=== PATIENT | female | born 1995 | race Caucasian/White ===

== ENCOUNTER 2016-10-25 08:56 | Emergency (ER) | payer MEDICAID ==
[2016-10-25 08:56] VITALS: BP 110/68
[2016-10-25 09:28] LABS: Urine Bilirubin Negative (NEGATIVE); Urine Blood Negative /ul (NEGATIVE); Urine Ketone Negative (NEGATIVE); Urine Nitrite Negative (NEGATIVE); Urine Protein Negative (NEGATIVE); Urine Urobilinogen Normal (NORMAL)
--- NOTE | 2016-10-25 09:31 | ERNOTE ---
ER Female HPI Stated Complaint: PREG TEST Source: patient Exam Limitations: no limitations Immunizations: IMMUNIZATION HX Immunizations Up to Date Yes History of Influenza Vaccine No Hx Pneumococcal Vaccination No Allergies/Adverse Reactions: Allergies lamotrigine [From Lamictal] Allergy (Mild, Verified 10/25/16 09:07) Hives sulfamethoxazole [From Bactrim] Allergy (Mild, Verified 10/25/16 09:07) Hives trimethoprim [From Bactrim] Allergy (Mild, Verified 10/25/16 09:07) Hives Home Medications: HOME MEDICATIONS NK [No Home Medication] 09/15/16 [Last Taken Unknown] - History of Present Illness Narrative: Pt presents after no period for the past 7 weeks. She has not had any spotting. Pt had a positive urine preg test followed by 2 negative ones. She is here with her friend who could not wait until the clinic opened. Has breast tenderness, mood swings. No uterine or abdominal cramping Date (Duration): 10/25/16 Time (Timing): 09:10 Quality: Present: mild Radiation: Present: none Activities at Onset: Present: none Prior Abdominal Problems: Present: none Sexual [place] History: Present: single partner Associated Symptoms: Present: denies symptoms Review of Systems - Review of Systems Constitutional: Present: no symptoms reported EYE: Present: no symptoms reported ENT: Present: no symptoms reported Respiratory: Present: no symptoms reported Cardiology: Present: no symptoms reported Gastrointestinal/Abdominal: Present: no symptoms reported Genitourinary: Present: no symptoms reported Musculoskeletal: Present: no symptoms reported Skin: Present: no symptoms reported Neurological: Present: no symptoms reported Endocrine: Present: no symptoms reported Hematologic/Lymphatic: Present: no symptoms reported - Patient's Past Medical History Patient History - Medical: Anxiety, Bipolar, Depression, Other Patient History - Cardiac/Respiratory: No pertinent hx Patient History - Cancer: No Hx of Cancer Patient History - Surgical Procedures: D & C - Social History Living Situations: home Smoking Status: Former smoker Alcohol Use: none Drug Use: none Physical Exam - Physical Exam General Appearance: Present: alert, no apparent distress Eye Exam: Normal inspection: bilateral Ears, Nose, Throat: Present: normal ENT inspection Neck: Present: normal inspection Respiratory: Present: no respiratory distress Cardiovascular/Chest: Present: regular rate, rhythm Gastrointestinal/Abdominal: Present: normal bowel sounds Back Exam: Present: normal inspection Extremity Exam: Present: normal inspection Neurological Exam: Present: alert, oriented Skin Exam: Present: normal color Lymphatic Exam: Present: no adenopathy ED Progress - Results and Orders Patient's Lab Results:: I have reviewed the patient's lab results. - Vital Signs Patient's Vital Signs:: I have reviewed the patient's vital signs. Vital Signs: Vital Signs 10/25/16 09:02 Temperature 95.9 C H Pulse Rate 92 Respiratory 12 Rate Blood Pressure 110/68 O2 Sat by Pulse 100 Oximetry - Progress/Reassessment Chief Complaint: Genitourinary Problem Plan - Plan Plan: f/u with PMD/ urogynecology physician Departure Clinical Impression: Negative test - Departure Disposition: Home self-care Condition: Good Instructions: Oral Contraception Information Referrals: Fabián Dickerson DO [Staff Physician] -
[2016-10-25 09:36] LABS: Urine Appearance Clear; Urine Bacteria TRACE; Urine Color Yellow; Urine RBC 0-5 /hpf (0-5); Urine WBC 0-5 /hpf (0-5)
== END 2016-10-25 10:54 | disposition home or self-care (01) ==
LOC: ER 08:56
DX: Z03.89 Encounter for observation for other suspected diseases and conditions ruled out (principal)

== ENCOUNTER 2016-11-04 12:22 | Emergency (ER) | payer MEDICAID ==
[2016-11-04 12:41] VITALS: BP 127/86
--- NOTE | 2016-11-04 13:19 | ERNOTE ---
Medical Problem HPI - Narrative Date of Service: 11/04/16 - General Chief Complaint: Flu Symptoms Time Seen by Provider: 11/04/16 13:06 Source: patient, RN notes reviewed Exam Limitations: no limitations - Immun/Allergies/Home Medications Immunizations: IMMUNIZATION HX Immunizations Up to Date Yes History of Influenza Vaccine No Hx Pneumococcal Vaccination No Allergies/Adverse Reactions: Allergies lamotrigine [From Lamictal] Allergy (Mild, Verified 11/04/16 12:41) Hives sulfamethoxazole [From Bactrim] Allergy (Mild, Verified 11/04/16 12:41) Hives trimethoprim [From Bactrim] Allergy (Mild, Verified 11/04/16 12:41) Hives Home Medications: HOME MEDICATIONS ALPRAZolam [Xanax] 1 mg PO TID PRN 11/04/16 [Last Taken Unknown] Amox Tr/Potassium Clavulanate [Augmentin 875-125 Tablet] 875 mg PO Q12H #20 tab 11/04/16 [Last Taken Unknown] Ziprasidone HCl 40 mg PO BID 11/04/16 [Last Taken Unknown] - History of Present History Narrative: Nadya is a 21 year old female who presents to the ED for a work excuse. She has had upper respiratory symptoms for 2 weeks. The illness seemed to be improving but she felt worse again today. She called in sick to her job and was told she had to see a doctor and have a note in order to come back to work. She reports a cough, sore throat and sinus congestion/pain. Timing: getting worse Review of Systems - Review of Systems Constitutional: Present: chills, diaphoresis, fatigue, malaise EYE: Present: no symptoms reported ENT: Present: nose congestion, nasal drainage, sore throat. Absent: ear pain Respiratory: Present: cough. Absent: shortness of breath, wheezing Cardiology: Present: no symptoms reported Gastrointestinal/Abdominal: Present: no symptoms reported Genitourinary: Present: no symptoms reported Musculoskeletal: Absent: muscle pain, neck pain, joint pain Skin: Absent: rash, lesions Neurological: Present: headache, dizziness/light-headedness Endocrine: Present: no symptoms reported Hematologic/Lymphatic: Present: no symptoms reported Psych: Present: no symptoms reported - Patient's Past Medical History Patient History - Medical: Anxiety, Bipolar, Depression, Other Patient History - Cardiac/Respiratory: No pertinent hx Patient History - Cancer: No Hx of Cancer Patient History - Surgical Procedures: D & C LMP (females 10-50): 3 months - negative UPT 1 wk ago - Social History Living Situations: other Smoking Status: Former smoker Have you smoked in the past 12 months: No Do you dip or chew tobacco: No Patient requests Smoking Cessation Consult: No Initiate information on Smoking Cessation: No Alcohol Use: none Drug Use: none Physical Exam - Physical Exam General Appearance: Present: wd/wn, alert, no apparent distress, other - appears uncomfortable Eye Exam: Normal inspection: bilateral Ears, Nose, Throat: Present: hearing grossly normal, nasal congestion, sinus pain/drainage, pharyngeal erythema. Absent: abnormal TM (R), abnormal TM (L) Neck: Present: supple, lymphadenopathy (R), lymphadenopathy (L), tender lateral Respiratory: Present: no respiratory distress, normal breath sounds, no accessory muscle use, lungs clear, other - frequent harsh cough Cardiovascular/Chest: Present: regular rate, rhythm, no murmur, normal peripheral pulses Neurological Exam: Present: alert, oriented, normal mood/affect, no motor/ sensory deficits Skin Exam: Present: normal color, warm/dry ED Progress - Results and Orders Patient's Lab Results:: I have reviewed the patient's lab results. - Vital Signs Patient's Vital Signs:: I have reviewed the patient's vital signs. Vital Signs: Vital Signs 11/04/16 12:34 Temperature 36.5 C Pulse Rate 80 Respiratory 16 Rate Blood Pressure 127/86 O2 Sat by Pulse 100 Oximetry - Progress/Reassessment Chief Complaint: Flu Symptoms Progress:: Unchanged Departure - Departure Clinical Impression: Sinusitis, acute Qualifiers: Sinusitis location: unspecified location Recurrence: non-recurrent Qualified Code(s): J01.90 - Acute sinusitis, unspecified Bronchitis, acute Qualifiers: Bronchitis organism: unspecified organism Qualified Code(s): J20.9 - Acute bronchitis, unspecified Disposition: Home self-care Condition: Good Instructions: Sinusitis, Adult, [id number], Form - Excuse from Work, School, or Physical Activity Prescriptions: Amox Tr/Potassium Clavulanate [Augmentin 875-125 Tablet] 875 mg PO Q12H #20 tab
== END 2016-11-04 13:25 | disposition home or self-care (01) ==
LOC: ER 12:22
DX: J20.9 Acute bronchitis, unspecified (principal); J01.90 Acute sinusitis, unspecified; Z87.891 Personal history of nicotine dependence; F41.1 Generalized anxiety disorder

== ENCOUNTER 2017-01-28 13:05 | Emergency (ER) | payer MEDICAID ==
[2017-01-28 14:01] LABS: Hematocrit 32.5 % (37.0-47.0); Hemoglobin 10.9 gm/dL (12.5-16.0); Mean Cell Volume 89.8 fl (78-100); Mean Corpuscular Hemoglobin 30.1 pg (27-31); Mean Corpuscular Hgb Conc 33.5 g/dl (32-36); Mean Platelet Volume 9.2 fl (6.0-9.5); Neutrophil # 7.3 K/mm3 (1.3-6.0); Neutrophil % 81.5 % (42-75.0); Platelet Count 345 K/mm3 (150-450); Red Blood Count 3.62 M/mm3 (4.2-5.4)
--- OUTSIDE RECORDS SUMMARY | 2017-01-28 14:11 | XMS REPORT | Continuity of Care Document ---
:1995 Author Organization [facility] ([facility]) Address [address] [place] [address] Phone [phone] Care Team Providers Name Role Phone Alfred Palma Primary Care Provider [phone] Source Comments This disclosure is being made pursuant to the Care Everywhere program, applicable federal and state laws, and may not contain all informaitonavailable regarding this patient.[facility] ([facility]) Active Allergies and Adverse Reactions No Active Allergies Current Medications Not on file Active Problems Problem Noted Date Supervision of other normal 09/11/2008 Unspecified complication of , antepartum 08/31/2008 Scoliosis (and kyphoscoliosis), idiopathic 09/24/2006 Social History Tobacco Use Types Packs/Day Years Used Date Never Assessed Last Filed Vital Signs Vital Sign Reading Time Taken Blood Pressure 126/69 09/11/2008 1:55 PM TERMINAL MAKE UP OPERATOR Pulse 79 09/11/2008 1:55 PM TERMINAL MAKE UP OPERATOR Temperature 36 C (96.8 F) 09/03/2008 8:00 AM TERMINAL MAKE UP OPERATOR Respiratory Rate 18 09/03/2008 8:00 AM TERMINAL MAKE UP OPERATOR Height 1.365 m (4' 5.74") 09/11/2008 1:55 PM TERMINAL MAKE UP OPERATOR Weight 61.1 kg (134 lb 11.2 oz) 09/11/2008 1:55 PM TERMINAL MAKE UP OPERATOR Body Mass Index 32.79 09/11/2008 1:55 PM TERMINAL MAKE UP OPERATOR Oxygen Saturation - - Plan of Care Health Maintenance Due Date Last Done Comments Hepatitis B Vaccine (1 of 3 - Primary Series) 1993 HPV Vaccine (1 of 3 - Female/Unknown 3 Dose Series) 2004 Tdap Vaccine 2004 Cervical Cancer Screening 2011 Lipid Disorder Screening 2011 MMR Vaccine 2011 Td Vaccine 2011 Varicella Vaccine (1 of 2 - Adult - No Evidence of 2011 Immunity) Influenza Vaccine: Seasonal (#1) 05/22/2016 Results from Last 3 Months Not on file
[2017-01-28 14:16] LABS: Prothrombin Time (Patient) 10.9 Seconds (9.4-11.4)
[2017-01-28 14:22] LABS: ALT 15 U/L (19-67); AST 13 U/L (0-48); Albumin * 3.8 gm/dl (3.4-5.0); Alkaline Phosphatase * 38 U/L (50-170); Anion Gap 12.1 mmol/L (6.8-13.8); BUN/Creatinine Ratio 16.4 (9.0-21.6); Bilirubin, Total 0.5 mg/dL (0.0-1.1); Blood Urea Nitrogen 10 mg/dL (3-23); Ca. Corrected For Albumin 8.5 mg/dL (8.4-10.2); Calcium * 8.7 mg/dL (7.9-10.9); Carbon Dioxide 24.5 mmol/L (24-32.6); Chloride 103 mmol/L (97-106); Glucose * 86 mg/dL (70-110); Potassium 3.6 mmol/L (3.4-4.6); Sodium 136 mmol/L (132-142); Total Protein 7.5 gm/dL (6.2-8.2); Troponin I Less than 0.017 ng/ml (0.00-0.10)
[2017-01-28 14:23] LABS: INR 1.05 INR (0.90-1.10); Partial Thrombolplastin Time 28.4 Seconds (24-32)
[2017-01-28 14:24] LABS: Urine Bilirubin Negative (NEGATIVE); Urine Blood Negative /ul (NEGATIVE); Urine Ketone 50 mg/dL (NEGATIVE); Urine Nitrite Negative (NEGATIVE); Urine Protein 15 mg/dL (NEGATIVE); Urine Specific Gravity 1.015 SP.GR. (1.005-1.010); Urine Urobilinogen Normal (NORMAL); Urine pH 8.5 pH (5.0-7.0)
[2017-01-28 14:41] LABS: Urine Appearance Cloudy; Urine Color Yellow
[2017-01-28 14:42] LABS: Urine Amorphous Sediment Few - 1+ (NONE-FEW); Urine Bacteria 1+; Urine Mucus Few - 1+; Urine RBC None Seen /hpf (0-5); Urine WBC 0-5 /hpf (0-5)
[2017-01-28 14:43] VITALS: BP 98/56
[2017-01-28 14:45] LABS: Cocaine Ur Negative (NEGATIVE); Urine Barbiturate Negative (NEGATIVE); Urine Benzodiazepines Negative (NEGATIVE); Urine Opiates Negative (NEGATIVE); Urine PCP Negative (NEGATIVE); Urine THC Negative (NEGATIVE)
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
== END 2017-01-28 15:04 | disposition home or self-care (01) ==
LOC: ER 13:05
DX: Z3A.01 Less than 8 weeks gestation of pregnancy (principal); Z33.1 Pregnant state, incidental; F41.8 Other specified anxiety disorders; F31.9 Bipolar disorder, unspecified

== ENCOUNTER 2017-08-21 19:53 | Inpatient (IN) | payer MEDICAID ==
[2017-08-21] MEDS ORDERED: RINGER'S SOLUTION,LACTATED 1,000 ML IV PRN (21:02)
[2017-08-21] MEDS ORDERED: NALOXONE HCL 1 MG/1 ML SYRG IV PRN (21:15)
[2017-08-21] MEDS ORDERED: DEXTROSE 5%-LACTATED RINGERS 1,000 ML IV PRN (21:15)
[2017-08-21] MEDS ORDERED: OXYTOCIN/DEXTROSE 5%-WATER 30 UNITS/500 ML BAG IV ONE (21:15)
[2017-08-21] MEDS ORDERED: ONDANSETRON HCL/PF 2 MG/ML VIAL IV PRN (21:15)
[2017-08-21] MEDS ORDERED: LIDOCAINE HCL 50 ML VIAL PERI PRN (21:15)
[2017-08-21] MEDS ORDERED: BUPIVACAINE HCL/PF 30 ML VIAL EP SCH (21:15)
[2017-08-21] MEDS ORDERED: BUPIVACAINE HCL/0.9 % NACL/PF 250 ML EP PRN (21:15)
--- NOTE | 2017-08-21 22:38 | OR ---
Anesthesia Procedure Note - Anesthesia Procedure Note Date of Service: 08/21/17 Narrative: Vital Signs - Last Taken Temp 36.9 C 08/21/17 22:08 Pulse 89 08/21/17 22:08 Resp 20 08/21/17 22:08 BP 128/85 08/21/17 22:08 Pulse Ox 98 08/21/17 22:08 08/21/17 22:37 ANESTHESIA PROCEDURE NOTE Date of Procedure: 08/21/2017. Time of procedure: 2209. Performed by: Refugio Polanco CRNA Breaker Oiler: None. Preprocedure diagnosis: Active labor. Post procedure diagnosis: Same. Procedure: Insertion of labor epidural. Indications: The patient is a 21 -year-old female in active labor requesting labor epidural for pain management. Findings: See below. Details of the procedure: The patient was placed in a sitting position. DuraPrep as well as Betadine swabs X3 was applied to the patient's back. Patient was then draped in a sterile fashion. Lidocaine 1% was infiltrated to the skin and subcutaneous tissues at the level of the L3-4 interspace. The epidural space was identified using a 18-gauge Tuohy needle with loss-of- resistance technique. Epidural catheter was inserted to a depth of 10 centimeters at skin. Negative test dose was elicited using 3 mL of 1.5% preservative-free lidocaine plus epinephrine 1 200,000. The epidural catheter was then taped and secured in place. A loading dose of 8 mL of 0.25% preservative-free bupivacaine was administered to the epidural catheter after negative aspiration for blood and CSF. EBL: Minimal. Fluids: N/A. Specimen: N/A. Post procedure condition: The patient tolerated the procedure well. No complications were noted. Thank you for this consultation. Refugio Polanco CRNA
[2017-08-22] MEDS ORDERED: BENZOCAINE/MENTHOL 81 SPRAY CAN TP PRN (00:15)
[2017-08-22] MEDS ORDERED: HYDROCORTISONE 30 APPL TUBE TP PRN (00:15)
[2017-08-22] MEDS ORDERED: OXYTOCIN/DEXTROSE 5%-WATER 30 UNITS/500 ML BAG IV ONE (00:15)
[2017-08-22] MEDS ORDERED: BISACODYL 10 MG SUPP.RECT RC PRN (00:15)
[2017-08-22] MEDS ORDERED: SENNOSIDES 8.6 MG TABLET PO PRN (00:15)
[2017-08-22] MEDS ORDERED: GLYCERIN/WITCH HAZEL LEAF 40 APPL BOX TP PRN (00:15)
[2017-08-22] MEDS ORDERED: oxyCODONE HCL/ACETAMINOPHEN 1 TAB TABLET PO PRN (00:15)
--- NOTE | 2017-08-22 00:18 | OR ---
Operative Report - Dictated Report Narrative: Spontaneous vaginal delivery of viable male at 2359 on 08/21/2017 with Apgars 9 and 9, weighing 3257 g in ABIMBOLA position with tight nuchal cord x 1. Cord clamping delayed approximately 1 minute Placenta delivered complete, intact, with three vessel cord Estimated blood loss: less than 50 ml Lacerations: First-degree clitoral laceration with no repair needed. History for MU Definition: * The number of deliveries resulting in a live the patient experienced prior to current hospitalization * The previous delivery of live twins or any live multiple gestation is considered one live event. *If primagravida or nulliparous is documented select zero for the number of previous live births. Live Events: 2
[2017-08-22] MEDS: IBUPROFEN 800 MG TABLET PO PRN ×3 (00:31→19:05)
[2017-08-22] MEDS: oxyCODONE HCL/ACETAMINOPHEN 1 TAB TABLET PO PRN ×2 (00:32→12:22)
[2017-08-22] MEDS: DOCUSATE SODIUM 100 MG CAPSULE PO SCH ×3 (09:25→21:23)
--- NOTE | 2017-08-22 17:52 | PN ---
Subjective - Date and Time Seen Date: 08/22/17 Time: 17:51 Objective - Vitals Vitals: Last Vital Signs Temp 36.8 C 08/22/17 09:04 Pulse 67 08/22/17 09:04 Resp 16 08/22/17 09:04 BP 109/55 08/22/17 09:04 Pulse Ox 99 08/22/17 09:04 Patient denies complaints. Lochia wnl Abdomen - soft, nontender Uterus - firm, at umbilicus - 1 No calf tenderness Impression: day #1 - s/p spontaneous vaginal delivery. Plan: Continue routine care
[2017-08-23] MEDS: IBUPROFEN 800 MG TABLET PO PRN (02:55)
[2017-08-23] MEDS: DOCUSATE SODIUM 100 MG CAPSULE PO SCH (09:25)
[2017-08-23 12:00] VITALS: BP 117/81
--- NOTE | 2017-08-23 17:45 | PN ---
Subjective - Date and Time Seen Date: 08/23/17 Time: 17:45 - seen this a.m. Objective - Vitals Vitals: Last Vital Signs Temp 36.2 C L 08/23/17 11:58 Pulse 79 08/23/17 11:58 Resp 16 08/23/17 11:58 BP 117/81 08/23/17 11:58 Pulse Ox 98 08/23/17 11:58 Patient denies complaints. Lochia wnl Abdomen - soft, nontender Uterus - firm, at umbilicus - 2 No calf tenderness Impression: day #2 - s/p spontaneous vaginal delivery. Plan: Routine discharge instructions
== END 2017-08-23 12:50 | disposition home or self-care (01) | DRG 775 ==
LOC: OBCLINIC 19:53 → OB 19:55 → UNDOADMIN 19:55 → EDSTATUS 20:40 → OB 21:17
PROVIDERS: ADMIT Obstetrics & Gynecology; ATTEND Obstetrics & Gynecology
PROC: 10E0XZZ Delivery of Products of Conception, External Approach (ICD-10-PCS; principal; 2017-08-21)
PROC: 10907ZC Drainage of Amniotic Fluid, Therapeutic from Products of Conception, Via Natural or Artificial Opening (ICD-10-PCS; 2017-08-21)
PROC: 4A1HXCZ Monitoring of Products of Conception, Cardiac Rate, External Approach (ICD-10-PCS; 2017-08-21)
PROC: 00HU33Z Insertion of Infusion Device into Spinal Canal, Percutaneous Approach (ICD-10-PCS; 2017-08-21)
DX: O69.1XX0 Labor and delivery complicated by cord around neck, with compression, not applicable or unspecified (principal); O70.0 First degree perineal laceration during delivery; O99.02 Anemia complicating childbirth; D64.9 Anemia, unspecified; Z3A.38 38 weeks gestation of pregnancy; Z37.0 Single live birth

== ENCOUNTER 2019-12-27 12:22 | Inpatient (IN) ==
--- NOTE | 2019-12-27 14:42 | HP ---
Chief Complaint - Chief Complaint Date of Service: 12/27/19 Time of Service: 14:29 Chief Complaint: Contractions, abdominal pain, back pain History of Present Illness: 24 year old at 36 weeks 3 days who presents to labor and delivery reporting that she has been alicia since 1130 PM last night. She tried to take a warm shower without relief in her symptoms. She also reports back pain. She reports she took 500 mg of tylenol this morning at 7 am but none since. She denies vaginal bleeding or loss of fluid. Fetus is active. No other concerns today Medical History (Last Reviewed 12/27/19 @ 14:35 by Tangela Alberto MD) Anemia (Acute) Onset Date: ~01/2017 w/pregnancies (Acute) Onset Date: Unknown , spontaneous (Resolved) Onset Date: ~2010 Acute pyelonephritis (Resolved) Onset Date: Unknown Anxiety (Resolved) Onset Date: 03/23/13 Aphthous stomatitis (Resolved) Onset Date: Unknown Back pain (Resolved) Onset Date: Unknown Back pain of thoracolumbar region (Resolved) Onset Date: Unknown Bronchitis, acute (Resolved) Onset Date: Unknown Carbon monoxide exposure (Resolved) Onset Date: Unknown Chest pain (Resolved) Onset Date: Unknown Chlamydia infection (Resolved) Onset Date: Unknown Dizziness (Resolved) Onset Date: Unknown Ectopic (Resolved) Onset Date: 06/29/16 Ectopic , tubal (Resolved) Onset Date: Unknown GERD (gastroesophageal reflux disease) (Resolved) Onset Date: 03/23/13 History of delivery Onset Date: 09/13/08 09/13/08 & 08/10/18-both @ 36wks Molluscum contagiosum (Resolved) Onset Date: Unknown Negative test (Resolved) Onset Date: Unknown Numbness and tingling (Resolved) Onset Date: Unknown Other social stressor (Resolved) Onset Date: Unknown in first trimester with history of (Resolved) Onset Date: Unknown contractions (Resolved) Onset Date: Unknown Scoliosis (Resolved) Onset Date: 01/23/09 Sinusitis, acute (Resolved) Onset Date: Unknown Threatened in early (Resolved) Onset Date: Unknown UTI (urinary tract infection) (Resolved) Onset Date: Unknown Upper respiratory infection, viral (Resolved) Onset Date: Unknown Vaginal delivery (Resolved) Onset Date: Unknown Vomiting (Resolved) Onset Date: Unknown Bipolar 1 disorder (Inactive) Onset Date: ~2012 Depression (Inactive) Onset Date: Unknown Migraine (Inactive) Onset Date: Unknown Surgical History: Surgical History (Last Reviewed 12/27/19 @ 14:35 by Tangela Alberto MD) H/O dilation and curettage (Resolved) Onset Date: 04/19/11 Loss of teeth due to extraction (Resolved) Onset Date: Unknown Family History: Family History (Last Reviewed 12/27/19 @ 14:35 by Tangela Alberto MD) Father Diabetes Mother Hypertension Diabetes Grandmother Heart disease Maternal Grandmother , Paternal Cancer type unknown Social History: (Last Reviewed 12/27/19 @ 14:36 by Tangela Alberto MD) Social History: Marital status: Single household members: children, significant other number of children: 4 current occupational status: employed current occupation: [employer] Highest education level completed: 9th grade Service: No Tobacco: Smoking Status: Former smoker Alcohol: alcohol intake: never Substance Use: substance use type: does not use Dietary Habits: caffeine: Yes caffeine comment: 2/day Type: carbonated beverages Exercise: Physical activity type: walking frequency: 1-2 times per week Personal Safety: victim of physical abuse: No victim of emotional abuse: No victim of sexual abuse: No Review Of Systems (GEN) - Review of Systems Generalized/Overall Review: Absent: Chills, Fever EENTM: Present: No Symptoms Reported Respiratory: Present: No Symptoms Reported Cardiac: Present: No Symptoms Reported Abdominal: Present: Abdominal Pain Genitourinary: Present: Other - Contractions Musculoskeletal: Present: No Symptoms Reported Neurological: Present: No Symptoms Reported Skin: Present: No Symptoms Reported Endocrine: Present: No Symptoms Reported Immunizations: IMMUNIZATION HX Immunizations Up to Date Yes History of Influenza Vaccine No Hx Pneumococcal Vaccination No Allergies/Adverse Reactions: Allergies Allergy/AdvReac Type Severity Reaction Status Date / Time lamotrigine [From Lamictal] Allergy Mild Hives Verified 12/21/19 02:50 sulfamethoxazole Allergy Mild Hives Verified 12/21/19 02:50 [From Bactrim] trimethoprim [From Bactrim] Allergy Mild Hives Verified 12/21/19 02:50 ciprofloxacin [From Cipro] Allergy Rash, Verified 12/21/19 02:50 Hives venlafaxine Allergy Hives/swell Verified 12/21/19 02:50 ing Home Medications: HOME MEDICATIONS ferrous sulfate 325 mg (65 mg iron) tablet,delayed release 325 mg PO DAILY #30 tab 10/27/19 [Last Taken 12/19/19] Ascorbic Acid [Vitamin C] 500 mg PO DAILY 11/29/19 [Last Taken 12/19/19] Vits96/Iron Fum/Folic [ S] 1 tab PO DAILY 12/27/19 [Last Taken Unknown] Exam - Exam Vital Signs: Vital Signs - Last Taken Temp 36.8 C 12/27/19 12:40 Pulse 80 12/27/19 12:40 Resp 20 12/27/19 12:40 BP 113/67 12/27/19 12:40 Pulse Ox 99 12/27/19 12:40 Constitutional: Present: Alert, Oriented x3, Cooperative, No distress ENT Exam: Present: hearing grossly normal Eye Exam: bilateral eye: normal inspection Neck: Present: non-tender, supple, normal inspection Back Exam: Present: normal inspection, no CVA tenderness, no vertebral tenderness Breasts: Present: Exam deferred Respiratory: Present: lungs clear, normal breath sounds, no respiratory distress Cardiovascular/Chest: Present: regular rate, rhythm Abdomen: Present: soft, nondistended, tender - throughout all quadrants /Rectal: Present: Other - cervix 4 cm per RN exam Extremity: Present: non-tender, no calf tenderness, pedal edema Skin Exam: Present: normal color, warm/dry, no cyanosis Appearance: Present: appropriate appearance Eye contact: Present: cooperative, normal speech, avoids eye contact Thoughts: Present: normal thought pattern Assessment/Plan - Narrative Narrative: 24 year old at 36w 4d with contractions and uterine irritability. Cervix unchanged. Abruption workup with laboratory workup and limited obstetrical ultrasound UA given back pain GBS negative: prophylaxis not indicated - Assessment/Plan (1) contractions Problem: Acute (2) Uterine irritability Problem: Acute (3) Back pain Problem: Acute Qualifiers: Back pain location: low back pain Chronicity: acute Back pain laterality: midline Sciatica presence: with sciatica (4) Anemia Problem: Acute Qualifiers: Anemia type: other cause Other causes of anemia: other cause, not classified Qualified Code(s): D64.89 - Other specified anemias
--- NOTE | 2019-12-27 14:58 | PN ---
Progess Note - Interim Date: 12/27/19 Time: 14:56 Non Stress Test - Status NST: 12/27/19 Reason for NST: threatened labor Monitor Mode: External Acceleration: Present Decelerations: None Variability: Moderate 6-25 bpm Baseline Heart Rate: 135 Activity: reactive Reactive: 15 by 15 - Assessment NST Assessment: threatened labor - Plan NST Plan: Other - Awaiting further workup prior to disposition
[2019-12-27 15:06] LABS: Urine Appearance Clear (CLEAR); Urine Bacteria None Seen; Urine Bilirubin Negative (NEGATIVE); Urine Blood Negative /ul (NEGATIVE); Urine Color Yellow; Urine Ketone Negative (NEGATIVE); Urine Nitrite Negative (NEGATIVE); Urine Protein Negative (NEGATIVE); Urine RBC None Seen /hpf (0-5); Urine Specific Gravity 1.005 SP.GR. (1.005-1.010); Urine Urobilinogen Normal (NORMAL); Urine WBC None Seen /hpf (0-5)
[2019-12-27] MEDS ORDERED: RINGER'S SOLUTION,LACTATED 1,000 ML IV ONE ×2 (15:18→15:33)
[2019-12-27 15:20] LABS: Hematocrit 30.2 % (37.0-47.0); Hemoglobin 9.6 gm/dL (12.5-16.0); Mean Cell Volume 90.4 fl (78-100); Mean Corpuscular Hemoglobin 28.7 pg (27-31); Mean Corpuscular Hgb Conc 31.8 g/dl (32-36); Mean Platelet Volume 10.3 fl (8-12.5); Neutrophil # 9.9 K/mm3 (1.3-6.0); Neutrophil % 68.3 % (42-75.0); Platelet Count 278 K/mm3 (150-450); Red Blood Count 3.34 M/mm3 (4.2-5.4); Red Cell Distribution Width 13.2 % (11.5-14.0); White Blood Count 14.4 K/mm3 (4.0-10.5)
[2019-12-27 15:24] LABS: Total Cells Counted 100
[2019-12-27 15:28] LABS: Prothrombin Time (Patient) 10.5 Seconds (9.1-10.7)
[2019-12-27 15:31] LABS: INR 1.06 INR (0.92-1.08); Partial Thrombolplastin Time 23.3 Seconds (24-32)
[2019-12-27] MEDS ORDERED: LIDOCAINE HCL 50 ML VIAL PERI PRN (15:33)
[2019-12-27] MEDS ORDERED: OXYTOCIN/DEXTROSE 5%-WATER 30 UNITS/500 ML BAG IV ONE ×2 (15:33→21:42)
[2019-12-27] MEDS ORDERED: ONDANSETRON 4 MG TAB.RAPDIS PO PRN (15:33)
[2019-12-27] MEDS ORDERED: BUTORPHANOL TARTRATE 2 MG/ML VIAL IV PRN ×2 (15:33)
[2019-12-27 15:43] LABS: Anisocytosis 1+; Atypical (Reactive) Lymph 2 % (0-2); Band 3 % (0-2.0); Eosinophil 2 % (0-3); Lymphocyte 15 % (20-51); Monocyte 10 % (0-9); Neutrophil 68 % (42-75); Neutrophil # 9.8 K/mm3 (1.3-6.0); Platelet Estimate Normal (NORMAL)
--- NOTE | 2019-12-27 15:44 | PN ---
Progess Note - Interim Date: 12/27/19 Time: 15:41 Narrative: 12/27/19 15:41 Proceed with IOL due to oligohydramnios beyond 36 weeks with prior administration of steroids cvx /-3 AROM for a small amount of clear fluid FHT Baseline 125 Reactive Moderate variability Occasional late decelerations Patient receiving bolus for epidural
[2019-12-27] MEDS ORDERED: BUPIVACAINE HCL/0.9 % NACL/PF 250 ML EP PRN (16:01)
[2019-12-27 16:15] LABS: Cocaine Ur Negative (NEGATIVE); Urine Barbiturate Negative (NEGATIVE); Urine Benzodiazepines Negative (NEGATIVE); Urine Opiates Negative (NEGATIVE); Urine PCP Negative (NEGATIVE); Urine THC Negative (NEGATIVE)
[2019-12-27] MEDS: RINGER'S SOLUTION,LACTATED 1,000 ML IV PRN ×2 (16:37→19:20)
[2019-12-27] MEDS ORDERED: fentaNYL CITRATE/PF 50 MCG/ML AMPUL ONE (17:35)
[2019-12-27] MEDS ORDERED: fentaNYL CITRATE/PF 50 MCG/ML AMPUL IT ONE (18:00)
--- NOTE | 2019-12-27 18:26 | ANES ---
Post Anesthesia Discharge - Transfer of Care Transfer of Care handoff given to nurse: Yes - Anesthesia Post Op Note Anesthesia Post Op Note: Care transferred to OB RN
--- NOTE | 2019-12-27 18:26 | ANES ---
Anesthesia Pre Procedure Eval Vitals/Labs: Last Vital Signs Temp 36.8 C 12/27/19 12:40 Pulse 80 12/27/19 12:40 Resp 20 12/27/19 12:40 BP 113/67 12/27/19 12:40 Pulse Ox 99 12/27/19 12:40 HOME MEDICATIONS ferrous sulfate 325 mg (65 mg iron) tablet,delayed release 325 mg PO DAILY #30 tab 10/27/19 [Last Taken 12/19/19] Ascorbic Acid [Vitamin C] 500 mg PO DAILY 11/29/19 [Last Taken 12/19/19] Vits96/Iron Fum/Folic [ S] 1 tab PO DAILY 12/27/19 [Last Taken Unknown] Allergies/Adverse Reactions: Allergies Allergy/AdvReac Type Severity Reaction Status Date / Time lamotrigine [From Lamictal] Allergy Mild Hives Verified 12/21/19 02:50 sulfamethoxazole Allergy Mild Hives Verified 12/21/19 02:50 [From Bactrim] trimethoprim [From Bactrim] Allergy Mild Hives Verified 12/21/19 02:50 ciprofloxacin [From Cipro] Allergy Rash, Verified 12/21/19 02:50 Hives venlafaxine Allergy Hives/swell Verified 12/21/19 02:50 ing - Planned Procedure Planned Procedure: Induction of labor Medication List Reviewed:: Yes Allergies Verified: Yes Medical History (Last Reviewed 12/27/19 @ 18:25 by Phill Thompson CRNA) Anemia (Acute) Onset Date: ~01/2017 w/pregnancies (Acute) Onset Date: Unknown , spontaneous (Resolved) Onset Date: ~2010 Acute pyelonephritis (Resolved) Onset Date: Unknown Anxiety (Resolved) Onset Date: 03/23/13 Aphthous stomatitis (Resolved) Onset Date: Unknown Back pain (Resolved) Onset Date: Unknown Back pain of thoracolumbar region (Resolved) Onset Date: Unknown Bronchitis, acute (Resolved) Onset Date: Unknown Carbon monoxide exposure (Resolved) Onset Date: Unknown Chest pain (Resolved) Onset Date: Unknown Chlamydia infection (Resolved) Onset Date: Unknown Dizziness (Resolved) Onset Date: Unknown Ectopic (Resolved) Onset Date: 06/29/16 Ectopic , tubal (Resolved) Onset Date: Unknown GERD (gastroesophageal reflux disease) (Resolved) Onset Date: 06/02/13 History of delivery Onset Date: 09/13/08 09/13/08 & 08/10/18-both @ 36wks Molluscum contagiosum (Resolved) Onset Date: Unknown Negative test (Resolved) Onset Date: Unknown Numbness and tingling (Resolved) Onset Date: Unknown Other social stressor (Resolved) Onset Date: Unknown in first trimester with history of (Resolved) Onset Date: Unknown contractions (Resolved) Onset Date: Unknown Scoliosis (Resolved) Onset Date: 01/23/09 Sinusitis, acute (Resolved) Onset Date: Unknown Threatened in early (Resolved) Onset Date: Unknown UTI (urinary tract infection) (Resolved) Onset Date: Unknown Upper respiratory infection, viral (Resolved) Onset Date: Unknown Vaginal delivery (Resolved) Onset Date: Unknown Vomiting (Resolved) Onset Date: Unknown Bipolar 1 disorder (Inactive) Onset Date: ~2012 Depression (Inactive) Onset Date: Unknown Migraine (Inactive) Onset Date: Unknown Surgical History (Last Reviewed 12/27/19 @ 18:25 by Phill Thompson CRNA) H/O dilation and curettage (Resolved) Onset Date: 04/19/11 Loss of teeth due to extraction (Resolved) Onset Date: Unknown Family History (Last Reviewed 12/27/19 @ 18:25 by Phill Thompson CRNA) Father Diabetes Mother Hypertension Diabetes Grandmother Heart disease Maternal Grandmother , Paternal Cancer type unknown - Family Anesthesia History Family History:: no untoward family reactions to anesthesia - Airway/Neck/Teeth Teeth Condition: missing Neck Exam: full range of motion Mallampatti Score: 2 Thyromental (T-M) distance: > 6 cm - Respiratory Respiratory Physical: lungs clear Smoking Status: Former smoker Sleep Apnea currently treated: No Sleep Apnea by current assessment: No - Cardiovascular Tolerate Activity: Good Heart Sounds: Regular - Gastrointestinal NPO since: 1200 - Anesthesia Assessment and Plan ASA Class: PS, II, E Anesthesia Type Plan: Epidural Planned difficult intubation/equipment available: No
--- NOTE | 2019-12-27 18:27 | ANES ---
Post Anesthesia Assessment - Vital Signs Vitals: Last Vital Signs Temp 36.8 C 12/27/19 12:40 Pulse 80 12/27/19 12:40 Resp 20 12/27/19 12:40 BP 113/67 12/27/19 12:40 Pulse Ox 99 12/27/19 12:40 Airway Patency: Normal - Mental Status Level Of Consciousness: Awake - Pain Level Pain Score: 2 - N/V Assessment Nausea/Vomiting Presence: None Dehydration:: No
--- NOTE | 2019-12-27 18:29 | ANES ---
Anesthesia Procedure Note Procedure Note: ANESTHESIA PROCEDURE NOTE Date of Procedure: 12/27/2019 Time of procedure: 1814. Performed by: Matt Thompson CRNA Equipment Application Specialist: None. Preprocedure diagnosis: Active labor. Post procedure diagnosis: Same. Procedure: Insertion of labor epidural. Indications: The patient is a [age]-year-old multigravida female in active labor requesting labor epidural for pain management. Findings: See below. Details of the procedure: The patient was placed in a sitting position. Back was prepped with DuraPrep. Patient was then draped in a sterile fashion. Lidocaine 1% was infiltrated to the skin and subcutaneous tissues at the level of the L3 4 interspace. The epidural space was identified using a 18-gauge Tuohy needle with [id number] technique. 20 mcg fentanyl was given intrathecally using a 27 ga. spinal needle. Epidural catheter was inserted without difficulty. Negative test dose was elicited using 5 mL of 1.5% preservative-free lidocaine plus epinephrine 1 200,000. The epidural catheter was then taped and secured in place. EBL: Minimal. Fluids: N/A. Specimen: N/A. Post procedure condition: The patient tolerated the procedure well. No complications were noted. Thank you for this consultation. Aguilar CRNA
[2019-12-27] MEDS ORDERED: BISACODYL 10 MG SUPP.RECT RC PRN (21:42)
[2019-12-27] MEDS ORDERED: HYDROCORTISONE 30 APPL TUBE TP PRN (21:42)
[2019-12-27] MEDS ORDERED: diphenhydrAMINE HCL 25 MG CAPSULE PO PRN (21:42)
[2019-12-27] MEDS ORDERED: GLYCERIN/WITCH HAZEL LEAF 40 APPL BOX TP PRN (21:42)
[2019-12-27] MEDS ORDERED: HYDROcodone/ACETAMINOPHEN 1 EACH TABLET PO PRN ×2 (21:42)
[2019-12-27] MEDS ORDERED: SENNOSIDES 8.6 MG TABLET PO PRN (21:42)
[2019-12-27] MEDS ORDERED: BENZOCAINE/MENTHOL 81 SPRAY CAN TP PRN (21:42)
--- NOTE | 2019-12-27 21:42 | OR ---
Operative Report - Dictated Report Narrative: Date of delivery: 12/27/2019 Time of delivery: 2125 Gender: male weight: 2803 grams APGARS: 06/30 Procedure: Description of the procedure: The patient is a 24 year old at 36w 3d who presented to labor and delivery complaining of uterine cramping that was not resolving. She also reported irregular contractions. On the monitor she was alicia about every 8 minutes with irritability in between contractions. Her abdomen was tender throughout. She had a leukocytosis. In addition, on the tracing there were occasional late decelerations. An ultrasound also showed oligohydramnios. In addition, the patient's cervix was 4-5 cm. Given the constellation of findings, her favorable cervix, and recent administration of corticosteroids a decision was made to proceed with IOL. She was ruptured for a small amount of clear fluid. Pitocin was on for 45 minutes but subsequently turned off due to too frequent contractions. She progressed to complete dilation. She delivered a viable male in ABIMBOLA presentation over an intact perineum. Cord clamping was delayed for 60 seconds. The cord was clamped and cut. Cord blood was collected. The placenta was delivered by expression and appeared intact. EBL: 150 mL Complications: none Specimens: cord blood, placenta to pathology History for MU Definition: * The number of deliveries resulting in a live the patient experienced prior to current hospitalization * The previous delivery of live twins or any live multiple gestation is considered one live event. *If primagravida or nulliparous is documented select zero for the number of previous live births. Live Events: 4
[2019-12-27] MEDS: IBUPROFEN 800 MG TABLET PO PRN (23:07)
[2019-12-27] MEDS ORDERED: MISOPROSTOL 200 MCG TABLET RC ONE (23:40)
[2019-12-28] MEDS: DOCUSATE SODIUM 100 MG CAPSULE PO SCH ×2 (08:48→21:07)
--- NOTE | 2019-12-28 10:54 | PN ---
Subjective - Date and Time Seen Date: 12/28/19 Time: 10:50 Subjective Narrative: Patient without complaints Objective Objective Narrative: See vital signs - Review of Systems Generalized/Overall Review: Reports: No Symptoms Reported Misc: All systems neg except as marked - Vitals Vitals: Last Vital Signs Temp 36.6 C 12/28/19 07:18 Pulse 75 12/28/19 07:18 Resp 18 12/28/19 07:18 BP 117/69 12/28/19 07:18 Pulse Ox 98 12/28/19 07:18 - Abnormal Lab Findings Abnormal Lab Findings: Abnormal Lab Results 12/27/19 12/27/19 Range/Units 15:10 15:10 WBC 14.4 H (4.0-10.5) K/mm3 RBC 3.34 L (4.2-5.4) M/mm3 Hgb 9.6 L (12.5-16.0) gm/dL Hct 30.2 L (37.0-47.0) % MCHC 31.8 L (32-36) g/dl Immature Gran % (Auto) 2.40 H (0.001-0.429) % Immature Gran # (Auto) 0.34 H (0.000-0.0310) K/mm3 Band Neuts % (Manual) 3 H (0-2.0) % Lymphocytes % 17.6 L (20-51) % Lymphocytes % (Manual) 15 L (20-51) % Monocytes % 10.9 H (0.0-9) % Monocytes % (Manual) 10 H (0-9) % Neutrophils # 9.9 H (1.3-6.0) K/mm3 Neutrophils # (Manual) 9.8 H (1.3-6.0) K/mm3 Monocytes # 1.6 H (0.0-1.0) k/mm3 Monocytes # (Manual) 1.4 H (0.0-1.0) k/mm3 PTT (Nataliia) 23.3 L (24-32) Seconds - Exam Constitutional: Present: Alert, Oriented x3, Cooperative, No distress Extremity: Present: non-tender, no calf tenderness Skin Exam: Present: normal color, warm/dry, no cyanosis Appearance: Present: appropriate appearance Eye contact: Present: cooperative Thoughts: Present: normal thought pattern Cauti Physician Documentation - Urinary Catheter Management Urethral (Mitchell) Urethral Indwelling: No Date of Insertion: 12/27/19 Time of Insertion: 18:35 Date of Removal: 12/27/19 Time of Removal: 21:15 Assessment/Plan Plan Narrative: PPD 1 s/p Doing well Discharge tomorrow - Problems/Diagnosis (1) contractions Problem: Acute (2) Uterine irritability Problem: Acute (3) Back pain Problem: Acute Qualifiers: Back pain location: low back pain Chronicity: acute Back pain laterality: midline Sciatica presence: with sciatica (4) Anemia Problem: Acute Qualifiers: Anemia type: other cause Other causes of anemia: other cause, not classified Qualified Code(s): D64.89 - Other specified anemias (5) Oligohydramnios Problem: Acute (6) Uterine tenderness Problem: Acute
[2019-12-28] MEDS: IBUPROFEN 800 MG TABLET PO PRN (18:46)
[2019-12-29 08:14] VITALS: BP 110/84
--- NOTE | 2019-12-29 09:20 | PN ---
Subjective - Date and Time Seen Date: 12/29/19 Time: 09:20 Subjective Narrative: Patient without complaints Objective Objective Narrative: See vital signs - Review of Systems Generalized/Overall Review: Reports: No Symptoms Reported Misc: All systems neg except as marked - Vitals Vitals: Last Vital Signs Temp 36.3 C 12/29/19 08:09 Pulse 73 12/29/19 08:09 Resp 18 12/29/19 08:09 BP 110/84 12/29/19 08:09 Pulse Ox 96 12/29/19 08:09 - Exam Constitutional: Present: Alert, Oriented x3, Cooperative, No distress Abdomen: Present: soft, nontender, nondistended Extremity: Present: non-tender, no calf tenderness Skin Exam: Present: normal color, warm/dry, no cyanosis Appearance: Present: appropriate appearance Eye contact: Present: cooperative Thoughts: Present: normal thought pattern Cauti Physician Documentation - Urinary Catheter Management Urethral (Mitchell) Urethral Indwelling: No Date of Insertion: 12/27/19 Time of Insertion: 18:35 Date of Removal: 12/27/19 Time of Removal: 21:15 Assessment/Plan Plan Narrative: PPD 2 s/p Doing well Discharge today Follow-up in 4 weeks or sooner for any other concerns - Problems/Diagnosis (1) contractions Problem: Acute (2) Uterine irritability Problem: Acute (3) Back pain Problem: Acute Qualifiers: Back pain location: low back pain Chronicity: acute Back pain laterality: midline Sciatica presence: with sciatica (4) Anemia Problem: Acute Qualifiers: Anemia type: other cause Other causes of anemia: other cause, not classified Qualified Code(s): D64.89 - Other specified anemias (5) Oligohydramnios Problem: Acute (6) Uterine tenderness Problem: Acute
[2019-12-29] MEDS: DOCUSATE SODIUM 100 MG CAPSULE PO SCH (10:56)
== END 2019-12-29 11:50 | disposition home or self-care (01) | DRG 806 ==
LOC: OBCLINIC 12:22 → OB 15:51
PROVIDERS: ADMIT Obstetrics & Gynecology; ATTEND Obstetrics & Gynecology
DX: Z37.0 Single live birth; Z3A.36 36 weeks gestation of pregnancy; O60.14X0 Preterm labor third trimester with preterm delivery third trimester, not applicable or unspecified; O41.03X0 Oligohydramnios, third trimester, not applicable or unspecified; O99.02 Anemia complicating childbirth; M54.40 Lumbago with sciatica, unspecified side
CPT/HCPCS: 36415; 59025; 76815; 80307; 81001; 85025; 85384; 85610; 85730; 86850; 88307; 88888

== ENCOUNTER 2021-04-04 16:58 | Inpatient (IN) ==
[2021-04-04] MEDS ORDERED: RINGER'S SOLUTION,LACTATED 1,000 ML IV PRN (17:18)
[2021-04-04] MEDS: NIFEdipine 10 MG CAPSULE PO SCH (18:47)
[2021-04-04] MEDS: BETAMETHASONE ACETATE,SOD PHOS 6 MG/ML VIAL IM SCH (18:47)
[2021-04-04 19:21] LABS: Urine Bilirubin Negative (NEGATIVE); Urine Blood Negative /ul (NEGATIVE); Urine Ketone Negative (NEGATIVE); Urine Nitrite Negative (NEGATIVE); Urine Protein Negative (NEGATIVE); Urine Urobilinogen Normal (NORMAL)
[2021-04-04 19:34] LABS: Urine Appearance Clear (CLEAR); Urine Bacteria TRACE; Urine Color Pale Yellow; Urine RBC TRACE /hpf (0-5)
--- NOTE | 2021-04-04 21:11 | HP ---
Chief Complaint - Chief Complaint Date of Service: 04/04/21 Time of Service: 20:57 Chief Complaint: low back pain, vaginal pressure, contractions History of Present Illness: 25 yo at 32w6d presents to L&D complaining of low back pain, contractions, and vaginal pressure of increasing intensity since this am. Patient had irregular contractions during initial evaluation but dilated from 4/75/-2 to 5/80/-2. For this reason she was admitted for PTL. This complicated by anemia, bipolar d/o, hx of PTL/PTD x 2 (36wks). Rh positive Rubella immune GBS negative 03/31/21 Medical History (Last Reviewed 04/04/21 @ 21:02 by Fabián Dickerson DO) History of ectopic (Chronic) History of delivery (Chronic) 36wk x 3 Twin preg w/ loss/retention one fetus, antepartum complication (Acute) Diamnionic/Dichrionic . Twin B 8w2d demise. STEVEN 05/24/21. Bipolar disorder (Chronic) , spontaneous (Resolved) Onset Date: ~2010 Acute pyelonephritis (Resolved) Onset Date: Unknown Anemia (Resolved) Onset Date: ~01/2017 w/pregnancies Anxiety (Resolved) Onset Date: 03/23/13 Aphthous stomatitis (Resolved) Onset Date: Unknown Back pain (Resolved) Onset Date: Unknown Back pain of thoracolumbar region (Resolved) Onset Date: Unknown Bronchitis, acute (Resolved) Onset Date: Unknown Carbon monoxide exposure (Resolved) Onset Date: Unknown Chest pain (Resolved) Onset Date: Unknown Chlamydia infection (Resolved) Onset Date: Unknown Dizziness (Resolved) Onset Date: Unknown Ectopic (Resolved) Onset Date: 06/29/16 Ectopic , tubal (Resolved) Onset Date: Unknown GERD (gastroesophageal reflux disease) (Resolved) Onset Date: 03/23/13 History of delivery Onset Date: 09/13/08 09/13/08 & 08/10/18-both @ 36wks Molluscum contagiosum (Resolved) Onset Date: Unknown Negative test (Resolved) Onset Date: Unknown Numbness and tingling (Resolved) Onset Date: Unknown Other social stressor (Resolved) Onset Date: Unknown (Resolved) Onset Date: Unknown in first trimester with history of (Resolved) Onset Date: Unknown contractions (Resolved) Onset Date: Unknown Scoliosis (Resolved) Onset Date: 01/23/09 Sinusitis, acute (Resolved) Onset Date: Unknown Threatened in early (Resolved) Onset Date: Unknown UTI (urinary tract infection) (Resolved) Onset Date: Unknown Upper respiratory infection, viral (Resolved) Onset Date: Unknown Vaginal delivery (Resolved) Onset Date: Unknown Vomiting (Resolved) Onset Date: Unknown Bipolar 1 disorder (Inactive) Onset Date: ~2012 Depression (Inactive) Onset Date: Unknown Migraine (Inactive) Onset Date: Unknown Surgical History: Surgical History (Last Reviewed 04/04/21 @ 17:20 by Lise Friedman RN) H/O dilation and curettage (Resolved) Onset Date: 04/19/11 Loss of teeth due to extraction (Resolved) Onset Date: Unknown Family History: Family History (Last Reviewed 04/04/21 @ 17:20 by Lise Friedman RN) Father Diabetes Mother Hypertension Diabetes Grandmother Heart disease Maternal Grandmother , Paternal Cancer type unknown Social History: (Last Reviewed 04/04/21 @ 17:20 by Lise Friedman RN) Social History: Marital status: Single household members: children number of children: 4 current occupational status: employed current occupation: [employer] Highest level of school completed/degree received: 9th grade Service: No Tobacco: Smoking Status: Former smoker Alcohol: alcohol intake: never Substance Use: substance use type: does not use Dietary Habits: caffeine: Yes caffeine comment: 2/day Type: carbonated beverages daily servings of milk/calcium: 2-4 Exercise: Physical activity type: walking frequency: 1-2 times per week Personal Safety: victim of physical abuse: No victim of emotional abuse: No victim of sexual abuse: No Review Of Systems (GEN) - Review of Systems Generalized/Overall Review: Present: No Symptoms Reported EENTM: Present: No Symptoms Reported Respiratory: Present: No Symptoms Reported Cardiac: Present: No Symptoms Reported Abdominal: Present: No Symptoms Reported Genitourinary: Present: Other - vaginal pressure, improved since admission Musculoskeletal: Present: Back Pain Neurological: Present: No Symptoms Reported Skin: Present: No Symptoms Reported Endocrine: Present: No Symptoms Reported Immunizations: IMMUNIZATION HX Immunizations Up to Date Yes History of Influenza Vaccine No Hx Pneumococcal Vaccination No Allergies/Adverse Reactions: Allergies Allergy/AdvReac Type Severity Reaction Status Date / Time lamotrigine [From Lamictal] Allergy Mild Hives Verified 03/28/21 13:30 sulfamethoxazole Allergy Mild Hives Verified 03/28/21 13:30 [From Bactrim] trimethoprim [From Bactrim] Allergy Mild Hives Verified 03/28/21 13:30 ciprofloxacin [From Cipro] Allergy Rash, Verified 03/28/21 13:30 Hives venlafaxine Allergy Hives/swell Verified 03/28/21 13:30 ing Home Medications: HOME MEDICATIONS prenat.vits,sotero,[id number] 1 tab PO DAILY 10/20/20 [Last Taken Unknown] ferrous sulfate 325 mg (65 mg iron) tablet 325 mg PO BID #30 tab 02/17/21 [Last Taken Unknown] ascorbate calcium (vitamin C) 500 mg tablet 500 mg PO BID 03/07/21 [Last Taken Unknown] Exam - Exam Vital Signs: Vital Signs - Last Taken Temp 36.6 C 04/04/21 17:20 Pulse 82 04/04/21 18:47 Resp 18 04/04/21 17:20 BP 129/68 04/04/21 18:47 Pulse Ox 98 04/04/21 17:20 Constitutional: Present: Alert, Oriented x3, Cooperative, No distress ENT Exam: Present: hearing grossly normal Neck: Present: non-tender, trachea midline. Absent: thyromegaly Breasts: Present: Exam deferred Respiratory: Present: lungs clear, no respiratory distress Cardiovascular/Chest: Present: normal peripheral pulses, regular rate, rhythm Abdomen: Present: soft, nontender, no rebound tenderness, other - gravid /Rectal: Present: Other - cervix 5/80/-2 Extremity: Present: no pedal edema, no calf tenderness Skin Exam: Present: normal color, warm/dry, no cyanosis Lymphatic: Present: no adenopathy Neurologic: Present: alert, normal mood/affect, oriented x 3 Appearance: Present: appropriate appearance, appropriate insight Eye contact: Present: cooperative, good eye contact Thoughts: Present: normal thought pattern, normal mood /affect Diagnostic Studies: Abnormal Lab Results 04/04/21 Range/Units 19:00 Ur Leukocyte Esterase 500 H (NEGATIVE) /ul Urine WBC 10-25 H (0-5) /hpf Laboratory Results Urine Color Pale yellow 04/04/21 19:00 Urine Appearance Clear (CLEAR) 04/04/21 19:00 Urine pH 7.0 pH (5.0-7.0) 04/04/21 19:00 Ur Specific [place] 1.010 SP.GR. (1.005-1.010) 04/04/21 19:00 Urine Protein Negative mg/dL (NEGATIVE) 04/04/21 19:00 Urine Glucose (UA) Negative mg/dL (NEGATIVE) 04/04/21 19:00 Urine Ketones Negative mg/dL (NEGATIVE) 04/04/21 19:00 Urine Blood Negative /ul (NEGATIVE) 04/04/21 19:00 Urine Nitrate Negative (NEGATIVE) 04/04/21 19:00 Urine Bilirubin Negative mg/dl (NEGATIVE) 04/04/21 19:00 Urine Urobilinogen Normal EU/dl (NORMAL) 04/04/21 19:00 Ur Leukocyte Esterase 500 /ul (NEGATIVE) H 04/04/21 19:00 Urine RBC Trace /hpf (0-5) 04/04/21 19:00 Urine WBC 10-25 /hpf (0-5) H 04/04/21 19:00 Ur Epithelial Cells 0-5 /hpf (0-5) 04/04/21 19:00 Urine Bacteria Trace (NONE) 04/04/21 19:00 Urine Culture Comments Culture to follow 04/04/21 19:00 Assessment/Plan - Assessment/Plan (1) labor in third trimester Assessment: Admit for course of steroids. Tocolytics up to 48 hours to acheive maximum benefit of steroids. If stable, will discharge to home after that on decreased activity and pelvic rest. Problem: Acute Qualifiers: labor delivery status: without delivery Qualified Code(s): O60.03 - labor without delivery, third trimester (2) History of delivery Problem: Chronic (3) Bipolar disorder Problem: Chronic Qualifiers: Active/Remission status: in remission of unspecified degree Qualified Code(s): F31.70 - Bipolar disorder, currently in remission, most recent episode unspecified (4) Twin preg w/ loss/retention one fetus, antepartum complication Problem: Resolved (5) Anemia Problem: Acute Qualifiers: Anemia type: iron deficiency Iron deficiency anemia type: inadequate dietary iron intake Qualified Code(s): D50.8 - Other iron deficiency anemias Non Stress Test - Status NST: 04/04/21 Weeks Gestation: 32w6d Reason for NST: other - labor Monitor Mode: External Acceleration: Present Decelerations: None Activity: reactive - Assessment NST Assessment: other - labor - Plan NST Plan: Admit to L&D
[2021-04-05] MEDS: NIFEdipine 10 MG CAPSULE PO SCH ×4 (00:34→18:17)
--- NOTE | 2021-04-05 09:33 | PN ---
Subjective - Date and Time Seen Date: 04/05/21 Time: 08:50 Objective - Review of Systems Generalized/Overall Review: Reports: No Symptoms Reported EENTM: Reports: No Symptoms Reported Respiratory: Reports: No Symptoms Reported Cardiac: Reports: No Symptoms Reported Abdominal: Reports: No Symptoms Reported Genitourinary Symptoms: Reports: No Symptoms Reported Musculoskeletal Complaints: Reports: No Symptoms Reported Neurological: Reports: No Symptoms Reported Skin: Reports: No Symptoms Reported Endocrine: Reports: No Symptoms Reported - Vitals Vitals: Last Vital Signs Temp 36.6 C 04/04/21 17:20 Pulse 67 04/05/21 06:47 Resp 18 04/04/21 17:20 BP 115/70 04/05/21 06:47 Pulse Ox 98 04/04/21 17:20 FHT reassuring, baseline 125, periods of mild and moderate variability, good accelerations with no decelerations. Rare contraction. NST reactive. - Abnormal Lab Findings Abnormal Lab Findings: Abnormal Lab Results 04/04/21 Range/Units 19:00 Ur Leukocyte Esterase 500 H (NEGATIVE) /ul Urine WBC 10-25 H (0-5) /hpf - Exam Constitutional: Present: Alert, Oriented x3, Cooperative, No distress ENT Exam: Present: hearing grossly normal Breasts: Present: Exam deferred Respiratory: Present: no respiratory distress Cardiovascular/Chest: Present: normal peripheral pulses, regular rate, rhythm, no edema Abdomen: Present: soft, nontender, no rebound tenderness, other - gravid /Rectal: Present: Exam deferred Extremity: Present: no pedal edema, no calf tenderness Skin Exam: Present: normal color, warm/dry, no cyanosis Lymphatic: Present: no adenopathy Neurologic: Present: alert, normal mood/affect, oriented x 3 Appearance: Present: appropriate appearance, appropriate insight Eye contact: Present: cooperative, good eye contact Thoughts: Present: normal thought pattern, normal mood /affect Assessment/Plan Plan Narrative: Will d/c continuous monitoring and increase activity. Continue NST q shift and toco PRN for contractions. Next BTMZ due this evening. Plan to d/c home tomorrow am if remains stable. Will take off work vs light duty until 36wks. - Problems/Diagnosis (1) labor in third trimester Problem: Acute Qualifiers: labor delivery status: without delivery Qualified Code(s): O60.03 - labor without delivery, third trimester (2) History of delivery Problem: Chronic (3) Bipolar disorder Problem: Chronic Qualifiers: Active/Remission status: in remission of unspecified degree Qualified Code(s): F31.70 - Bipolar disorder, currently in remission, most recent episode unspecified (4) Twin preg w/ loss/retention one fetus, antepartum complication Problem: Resolved (5) Anemia Problem: Acute Qualifiers: Anemia type: iron deficiency Iron deficiency anemia type: inadequate dietary iron intake Qualified Code(s): D50.8 - Other iron deficiency anemias
[2021-04-05] MEDS: BETAMETHASONE ACETATE,SOD PHOS 6 MG/ML VIAL IM SCH (18:18)
[2021-04-06] MEDS: NIFEdipine 10 MG CAPSULE PO SCH (00:33)
[2021-04-06] MEDS: NIFEdipine 30 MG TAB.SR.24H PO SCH ×2 (07:18→10:08)
[2021-04-06 07:19] VITALS: BP 114/68
--- NOTE | 2021-04-06 12:00 | PN ---
Subjective - Date and Time Seen Date: 04/06/21 Time: 11:52 Objective - Review of Systems Generalized/Overall Review: Reports: No Symptoms Reported EENTM: Reports: No Symptoms Reported Respiratory: Reports: No Symptoms Reported Cardiac: Reports: No Symptoms Reported Abdominal: Reports: Other - Had some abdominal/vaginal pressure earlier this morning but none since. Genitourinary Symptoms: Reports: No Symptoms Reported Musculoskeletal Complaints: Reports: No Symptoms Reported Neurological: Reports: No Symptoms Reported Skin: Reports: No Symptoms Reported Endocrine: Reports: No Symptoms Reported - Vitals Vitals: Last Vital Signs Temp 36.5 C 04/06/21 06:55 Pulse 77 04/06/21 07:18 Resp 18 04/06/21 06:55 BP 114/68 04/06/21 07:18 Pulse Ox 97 04/06/21 06:55 - Exam Constitutional: Present: Alert, Oriented x3, Cooperative, No distress ENT Exam: Present: hearing grossly normal Neck: Present: thyromegaly Breasts: Present: Exam deferred Respiratory: Present: no respiratory distress Cardiovascular/Chest: Present: normal peripheral pulses, no edema Abdomen: Present: soft, nontender, no rebound tenderness, other - gravid, no bowel sounds /Rectal: Present: Other - cervix -4-5/75/-2 Extremity: Present: no pedal edema, no calf tenderness Skin Exam: Present: normal color, warm/dry, no cyanosis Assessment/Plan Plan Narrative: Patient has remained stable since starting tocolytics. She has received 2 doses of betamethasone-last dose given at 18:18 yesterday. Patient will be discharged to home with work release until 36 weeks . She is instructed to avoid heavy lifting, strenuous activity, and sexual activity until 36 weeks. Patient will follow up in the office in 1 week as scheduled. Call for return of any signs/symptoms of labor. - Problems/Diagnosis (1) labor in third trimester Problem: Resolved Qualifiers: labor delivery status: without delivery Qualified Code(s): O60.03 - labor without delivery, third trimester (2) History of delivery Problem: Chronic (3) Bipolar disorder Problem: Chronic Qualifiers: Active/Remission status: in remission of unspecified degree Qualified Code(s): F31.70 - Bipolar disorder, currently in remission, most recent episode unspecified (4) Twin preg w/ loss/retention one fetus, antepartum complication Problem: Resolved (5) Anemia Problem: Chronic Qualifiers: Anemia type: iron deficiency Iron deficiency anemia type: inadequate dietary iron intake Qualified Code(s): D50.8 - Other iron deficiency anemias
--- NOTE | 2021-04-06 12:12 | DS ---
OB Discharge Summary (1) labor in third trimester Status: Resolved Qualifiers: labor delivery status: without delivery Qualified Code(s): O60.03 - labor without delivery, third trimester (2) History of delivery Status: Chronic (3) Bipolar disorder Status: Chronic Qualifiers: Active/Remission status: in remission of unspecified degree Qualified Code(s): F31.70 - Bipolar disorder, currently in remission, most recent episode unspecified (4) Twin preg w/ loss/retention one fetus, antepartum complication Status: Resolved (5) Anemia Status: Chronic Qualifiers: Anemia type: iron deficiency Iron deficiency anemia type: inadequate dietary iron intake Qualified Code(s): D50.8 - Other iron deficiency anemias :: 8 Para:: 5 Gestational weeks:: 32 - On day of admission Gestational days:: 6 Intrapartum Procedures: Undelivered, Other - Course of steroids. Tocolytics. Procedures: None Discharge Diagnosis: Premature Labor - Undelivered, Rubella Immune - Discharge Information Date of Discharge: 04/06/21 Hospital Course: 25-year-old 8 para 5 admitted to labor and delivery for labor. Patient cervix changed from 4/75/-2-5/80/-2. She was started on Procardia 10 mg every 6 hours orally and given 2 doses of betamethasone. Last dose given on 04/05/2021 at 1818. She had intermittent contractions periodically throughout her hospital stay but her cervix remained unchanged. She was discharged to home with labor precautions, work release until 36 weeks gestation, and instructions to avoid heavy lifting/strenuous activity/sexual activity until 36 weeks. Discharge Location: Home Disposition: Home self-care Condition: Good Activity on Discharge:: Activity as tolerated, Pelvic Rest, No lifting Discharge Diet: General/regular food Additional Patient Instructions (free text): Please keep your follow up appt with Dr Dickerson on April 12 at 1:30PM. Off work until you are 36 weeks gestation which is April 26, 2021. No Sexual [place]. No Lifting or Strenuous Activity. Complete Home Medications List: Complete Home Medication List: prenat.vits,sotero,qeo-[id number]-[id number] 1 tab PO DAILY 10/20/20 ferrous sulfate 325 mg (65 mg iron) tablet 325 mg PO BID #30 tab 04/29/21 ascorbate calcium (vitamin C) 500 mg tablet 500 mg PO BID 03/07/21 - Plan Discharge to:: Home Follow up in office in:: 1 week - [place] Information Complications: None
== END 2021-04-06 12:15 | disposition home or self-care (01) | DRG 833 ==
LOC: OB 16:58 → OBCLINIC 16:58 → OBSVTOIN 18:19
PROVIDERS: ADMIT Obstetrics & Gynecology; ATTEND Obstetrics & Gynecology